=== PATIENT | male | born 1965 | race Caucasian/White ===

== ENCOUNTER 2020-06-10 09:17 | Day surgery (SDC) | payer OTHER ==
[2020-06-05 11:33] VITALS: BMI 32.8
[~2020-06-10 09:17] MED LIST: LACTATED RINGERS 1,000 ML IV SCH; LIDOCAINE 1% (10MG/ML) FOR IV START INTRADERMA PRN
[2020-06-10 09:45] VITALS: TEMP 97
[2020-06-10] MEDS ORDERED: PROPOFOL 10 MG/ML 20 ML VIAL IV ONE (10:13)
--- NOTE | 2020-06-10 10:15 | P.GSHP ---
History of Present Illness H&P Date: 06/10/20 Chief Complaint: Blood in stool 55-year-old male here today for colonoscopy. Had a colonoscopy 1-2 that showed diverticulitis. Patient recently had a cologuard test which was positive. Sees occasional bright red blood per rectum. No known hemorrhoids. No family history of colon cancer. Past Medical History Past Medical History: Hyperlipidemia, Osteoarthritis (OA) Additional Past Medical History / Comment(s): "Wearing a heart monitor currently, heart racing at times. Postive stool sample." History of Any Multi-Drug Resistant Organisms: None Reported Past Surgical History: No Surgical Hx Reported Additional Past Surgical History / Comment(s): Colonoscopy. Past Anesthesia/Blood Transfusion Reactions: Motion Sickness Past Psychological History: No Psychological Hx Reported Smoking Status: Current every day smoker Past Alcohol Use History: Occasional Additional Past Alcohol Use History / Comment(s): Has been smoking 40 yrs, 1 PPD. Past Drug Use History: None Reported - Past Family History Father Family Medical History: Cancer Additional Family Medical History / Comment(s): Leukemia. Medications and Allergies Home Medications Medication Instructions Recorded Confirmed Type Atorvastatin [Lipitor] 40 mg PO DAILY 06/05/20 06/10/20 History Cider Vinegar [Apple Cider Vinegar] 300 mg PO DAILY 06/05/20 06/10/20 History Allergies Allergy/AdvReac Type Severity Reaction Status Date / Time No Known Allergies Allergy Verified 06/10/20 09:46 Surgical - Exam Vital Signs Temp Pulse Resp BP Pulse Ox 97 F L 74 16 148/92 97 06/10/20 09:44 06/10/20 09:44 06/10/20 09:44 06/10/20 09:44 06/10/20 09:44 Physical exam: General: Well-developed, well-nourished HEENT: Normocephalic, sclerae nonicteric Abdomen: Nontender, nondistended Extremities: No edema Neuro: Alert and oriented Assessment and Plan (1) Blood in stool Narrative/Plan: Will proceed with colonoscopy Current Visit: Yes Status: Acute Code(s): K92.1 - MELENA SNOMED Code(s): 646516226
--- NOTE | 2020-06-10 10:30 | P.PCN ---
Date of Procedure: 06/10/20 Procedure(s) Performed: PREOPERATIVE DIAGNOSIS: Blood in stool POSTOPERATIVE DIAGNOSIS: Mild left-sided colitis, diverticulosis PROCEDURE: Colonoscopy with biopsy ANESTHESIA: MAC SURGEON: Garth Rico M.D. SPECIMENS: Colitis ENDOSCOPIC PROCEDURE: The patient was placed on the endoscopy table in the left decubitus position. The Olympus colonoscope was inserted into the anus and passed under direct visualization to the base of the cecum. The appendiceal orifice was visualized. From that point the scope was slowly withdrawn inspecting all surfaces carefully. There were no neoplastic inflammatory or polypoid lesions throughout the cecum, ascending, and transverse colon. In the descending and sigmoid colon there was mild scattered areas of inflammatory change with edema and erythema of the mucosa. No ulcerations were seen. These were not necessarily in the vicinity of diverticulosis pockets. There was diverticulosis seen however in the sigmoid colon. Biopsies of the areas of colitis took place. Overall the degree of inflammatory change was mild. The rectum appeared normal. Digital rectal examination was normal. The patient was taken to the recovery room in stable condition per anesthesia guidelines. RECOMMENDATIONS: Await biopsy results. Inflammatory changes likely the source of recent cologuard positive stools. If biopsy results negative for malignancy or atypia recommend observation for now. Follow colonoscopy advised 5 years. Would not repeat cologuard as this likely will remain positive.
[2020-06-10 10:55] VITALS: BP 124/86; PULSE 63; RESP 16
== END 2020-06-10 11:17 | disposition home or self-care (01) ==
LOC: ORWHC2ENDO 09:17
PROVIDERS: ATTEND Surgery
DX: K51.511 Left sided colitis with rectal bleeding (principal); K57.31 Diverticulosis of large intestine without perforation or abscess with bleeding; E78.5 Hyperlipidemia, unspecified; M19.90 Unspecified osteoarthritis, unspecified site; R00.0 Tachycardia, unspecified; F17.210 Nicotine dependence, cigarettes, uncomplicated; I49.9 Cardiac arrhythmia, unspecified; Z98.890 Other specified postprocedural states; Z87.898 Personal history of other specified conditions; Z79.899 Other long term (current) drug therapy; Z80.6 Family history of leukemia
CPT/HCPCS: 45380; 88305

== ENCOUNTER 2020-09-20 10:05 | Inpatient (IN) | payer OTHER ==
[2020-09-20] MEDS ORDERED: NITROGLYCERIN OINT 1 INCH/GM PACKET TOPICAL STA ×2 (10:25→10:27)
[2020-09-20] MEDS ORDERED: ASPIRIN 81 MG PO STA ×2 (10:26→10:27)
[2020-09-20] MEDS ORDERED: ATORVASTATIN 80 MG TAB PO STA (10:26)
[2020-09-20] MEDS ORDERED: HEPARIN SODIUM 1,000 UN/ML (10ML VL) IV ONE ×2 (10:26→10:27)
--- NOTE | 2020-09-20 10:30 | ED ---
General Adult HPI - General Chief complaint: Chest Pain Stated complaint: Chest pain Time Seen by Provider: 09/20/20 10:10 Source: patient, RN notes reviewed, old records reviewed Mode of arrival: ambulatory Limitations: no limitations - History of Present Illness Initial comments: This is a 55-year-old male who presents emergency Department complaining of chest pain intermittently over the last week. Patient states at times his been severe. Patient states he has high blood pressure and high cholesterol. Patient denies any previous cardiac history. Patient denies any diabetes. Patient denies any smoking history. Patient came in and was having some significant pain this morning but when he got here was only minimal he was having pain hour when EKG was done. Patient states currently he is chest pain- free. Patient denies any palpitations. Patient denies shortness of breath per patient denies any abdominal pain patient denies nausea vomiting diarrhea. - Related Data Home Medications Medication Instructions Recorded Confirmed Atorvastatin [Lipitor] 40 mg PO DAILY 06/05/20 06/10/20 Cider Vinegar [Apple Cider Vinegar] 300 mg PO DAILY 06/05/20 06/10/20 Allergies Allergy/AdvReac Type Severity Reaction Status Date / Time No Known Allergies Allergy Verified 09/20/20 10:14 Review of Systems ROS Statement: Those systems with pertinent positive or pertinent negative responses have been documented in the HPI. ROS Other: All systems not noted in ROS Statement are negative. Past Medical History Past Medical History: Hyperlipidemia, Osteoarthritis (OA) Additional Past Medical History / Comment(s): "Wearing a heart monitor currently, heart racing at times. Postive stool sample." History of Any Multi-Drug Resistant Organisms: None Reported Past Surgical History: No Surgical Hx Reported Additional Past Surgical History / Comment(s): Colonoscopy. Past Anesthesia/Blood Transfusion Reactions: Motion Sickness Past Psychological History: No Psychological Hx Reported Smoking Status: Current every day smoker Past Alcohol Use History: Occasional Past Drug Use History: None Reported - Past Family History Father Family Medical History: Cancer Additional Family Medical History / Comment(s): Leukemia. General Exam - General Exam Comments Initial Comments: GENERAL: Patient is well-developed and well-nourished. Patient is nontoxic and well- hydrated and is in mild distress. ENT: Neck is soft and supple. No significant lymphadenopathy is noted. Oropharynx is clear. Moist mucous membranes. Neck has full range of motion without eliciting any pain. EYES: The sclera were anicteric and conjunctiva were pink and moist. Extraocular movements were intact and pupils were equal round and reactive to light. Eyelids were unremarkable. PULMONARY: Unlabored respirations. Good breath sounds bilaterally. No audible rales rhonchi or wheezing was noted. CARDIOVASCULAR: There is a regular rate and rhythm without any murmurs gallops or rubs. ABDOMEN: Soft and nontender with normal bowel sounds. SKIN: Skin is clear with no lesions or rashes and otherwise unremarkable. NEUROLOGIC: Patient is alert and oriented x3. Cranial nerves II through XII are grossly intact. Motor and sensory are also intact. Normal speech, volume and content. Symmetrical smile. MUSCULOSKELETAL: Normal extremities with adequate strength and full range of motion. No lower extremity swelling or edema. No calf tenderness. LYMPHATICS: No significant lymphadenopathy is noted PSYCHIATRIC: Normal psychiatric evaluation. Limitations: no limitations Course Vital Signs 09/20/20 10:11 Temperature 98.2 F Pulse Rate 76 Respiratory 18 Rate Blood Pressure 155/101 O2 Sat by Pulse 99 Oximetry Medical Decision Making - Medical Decision Making EKG shows normal sinus rhythm at 67 bpm RI interval 222 QRS is 106 QT interval 366 QTC is [address] segment elevation in inferior leads II, III, and F aVF. I called a STEMI overhead immediately I spoke with Dr. Emanuel he came down to see the patient within minutes. She will be taking to the catheterization lab. I spoke with Dr. Barriga and he agreed to admit the patient admitted the patient and wroteorders Critical Care Time Critical Care Time: Yes Total Critical Care Time: 30 Disposition Clinical Impression: ST elevation myocardial infarction (STEMI) Disposition: ADMITTED IP TO THIS HOSP Referrals: Jose R Morrison MD [Primary Care Provider] - 1-2 days Time of Disposition: 10:30
[2020-09-20 10:37] LABS: Basophils % (A) 0 %; Eosinophils # (A) 0.3 k/uL (0-0.7); Eosinophils % (A) 3 %; HCT 52.5 % (39.0-53.0); HGB 17.7 gm/dL (13.0-17.5); Lymphocytes # (A) 1.8 k/uL (1.0-4.8); Lymphocytes % (A) 23 %; MCH 29.3 pg (25.0-35.0); MCHC 33.8 g/dL (31.0-37.0); MCV 86.9 fL (80.0-100.0); Mean Platelet Volume 7.4; Monocytes # (A) 0.4 k/uL (0-1.0); Monocytes % (A) 5 %; Neutrophils # (A) 5.3 k/uL (1.3-7.7); Neutrophils % (A) 68 %; Platelet Count 273 k/uL (150-450); RBC 6.05 m/uL (4.30-5.90); RDW 12.6 % (11.5-15.5); WBC 7.8 k/uL (3.8-10.6)
[2020-09-20] MEDS ORDERED: IV FLUID CONTINUATION 1,000 ML IV ONE (10:50)
--- NOTE | 2020-09-20 10:50 | XR ---
EXAMINATION TYPE: XR chest 1V portable DATE OF EXAM: 09/20/2020 COMPARISON: None HISTORY: Chest pain TECHNIQUE: Single frontal view of the chest is obtained. FINDINGS: There is no focal air space opacity, pleural effusion, or pneumothorax seen. The cardiac silhouette size is within normal limits. The osseous structures are intact. IMPRESSION: No acute process.
[2020-09-20 10:51] LABS: Partial Thromboplastin Time 23.3 sec (22.0-30.0); Prothrombin Time 10.5 sec (9.0-12.0)
[2020-09-20] MEDS ORDERED: VERAPAMIL 2.5 MG/ML 2 ML AMP ONE (10:58)
[2020-09-20] MEDS ORDERED: LIDOCAINE 1% INJ 10MG/ML (20 ML MDV) ONE (10:59)
[2020-09-20] MEDS ORDERED: fentaNYL (PF) 50 MCG/ML 2 ML AMP IVP ONE (11:00)
[2020-09-20] MEDS ORDERED: fentaNYL (PF) 50 MCG/ML 2 ML AMP ONE (11:00)
[2020-09-20] MEDS ORDERED: LIDOCAINE 1% INJ 10MG/ML (20 ML MDV) SQ ONE (11:04)
[2020-09-20] MEDS ORDERED: MIDAZOLAM 2 MG/2 ML VIAL IVP ONE (11:05)
[2020-09-20] MEDS ORDERED: VERAPAMIL SYRINGE (5 MG/10 ML) INTRAARTER ONE (11:06)
[2020-09-20] MEDS ORDERED: HEPARIN SODIUM 1,000 UN/ML (10ML VL) ONE (11:09)
[2020-09-20] MEDS ORDERED: TICAGRELOR 90 MG TAB ONE (11:11)
[2020-09-20] MEDS ORDERED: TICAGRELOR 90 MG TAB PO ONE (11:12)
[2020-09-20 11:16] LABS: ALT 96 U/L (4-49); AST 51 U/L (17-59); African American GFR (CKD) >90 (>60 ml/min/1.73 sqM); Albumin 4.8 g/dL (3.5-5.0); Alkaline Phosphatase 81 U/L (38-126); Anion Gap 8 mmol/L; Blood Urea Nitrogen 16 mg/dL (9-20); Calcium 10.2 mg/dL (8.4-10.2); Carbon Dioxide 28 mmol/L (22-30); Chloride 102 mmol/L (98-107); Glucose 144 mg/dL (74-99); Magnesium 1.9 mg/dL (1.6-2.3); Non-African American GFR(CKD) >90 (>60 ml/min/1.73 sqM); Potassium 4.7 mmol/L (3.5-5.1); Sodium 138 mmol/L (137-145); Total Bilirubin 0.3 mg/dL (0.2-1.3); Total Protein 7.1 g/dL (6.3-8.2)
[2020-09-20] MEDS ORDERED: IOPAMIDOL-370 100ML BTL INJ ONE ×2 (11:24→11:28)
[2020-09-20] MEDS ORDERED: MAG HYDROX/AL HYDROX/SIMETH 30 ML CUP PO PRN (11:42)
[2020-09-20] MEDS ORDERED: RX INFO: IV CONTRAST WAS GIVEN 1 EACH MISC MISCELLANE PRN (11:42)
[2020-09-20] MEDS ORDERED: ZOLPIDEM 5 MG TAB PO PRN (11:42)
[2020-09-20] MEDS ORDERED: NITROGLYCERIN SL TABS 0.4 MG TAB SUBLINGUAL PRN (11:42)
[2020-09-20] MEDS ORDERED: ATROPINE SULFATE 0.1 MG/ML 10ML SYRINGE IV PRN (11:42)
[2020-09-20 11:52] LABS: Glucose,Whole Blood 149 mg/dL (75-99)
[2020-09-20] MEDS: SODIUM CHLORIDE 0.9% 1,000 ML IV SCH ×2 (12:06→17:13)
--- NOTE | 2020-09-20 13:09 | CC ---
CARDIAC CATHETERIZATION REPORT HISTORY: Mr. Cota is a 55-year-old male, history of hypertension, hyperlipidemia, and chronic tobacco use, who presented with an acute ST-segment elevation myocardial infarction. In view of that, recommendation was made regarding cardiac catheterization, the procedure as well as the risks and the complications were discussed with the patient who is in full understanding and agreement. PROCEDURE: Patient was brought to the labor relations specialist. He received fentanyl and Benadryl and achieving moderate conscious state. He was prepped and draped in conventional fashion using Xylocaine anesthesia, Seldinger technique a 6-Omani sheath was introduced in the right radial artery. Selective right and left coronary angiography performed using 6-Omani FR4 guiding catheter and a 5-Omani 3.5 bend left Fidelina catheter. After obtaining images of the right coronary artery and performing angioplasty and stenting, images of the left coronary system were obtained. The right guide was used to cross the aortic valve and left ventricular end-diastolic pressure was calculated. Following that, catheter and sheath were removed. Hemostasis was obtained with deployment of TR band. There was no complication patient was returned to his room in stable condition. FINDINGS: LEFT MAIN: This is a large-sized vessel, bifurcating into left circumflex, left anterior descending artery. The left main coronary artery has no evidence of high-grade stenosis. LEFT ANTERIOR DESCENDING ARTERY: This is a large-sized vessel giving rise to a very proximal large diagonal branch. The second diagonal branch is small in caliber. The first diagonal branch has a 20% to 30%. plaque. The LAD has no evidence of high-grade stenosis. The LAD tapers down in distal third. LEFT CIRCUMFLEX: This is a nondominant vessel giving rise to 3 obtuse marginal branches. The first and 2nd are moderate in caliber. The left circumflex after the takeoff of the first diagonal branch has a 20% to 30% plaque. The rest of the vessel has no high-grade stenosis. RIGHT CORONARY ARTERY: This is a large dominant vessel bifurcating into PDA and posterolateral segment branches. The PDA reaches to the inferoapical wall. Right coronary artery is tortuous. In mid segment at the distal segment prior to the bifurcation there is 95%. He has the plaque. The rest of the vessel has no high-grade stenosis. LEFT VENTRICULOGRAM: Left ventriculogram was not performed. HEMODYNAMICS: There was no gradient across the aortic valve. The left ventricular end-diastolic pressure was 6 to 8 mmHg. CONCLUSION: 1. Subtotally occluded distal right coronary artery with haziness consistent with an intracoronary thrombus. 2. Mild disease in the LAD and the left circumflex. RECOMMENDATIONS: In view of finding anatomy, I recommend proceeding with angioplasty and stenting. The procedure as well as the risks and the complications were discussed with the patient who is in full understanding and agreement. MMODL / IJN: [id number] /
--- NOTE | 2020-09-20 13:20 | CONS ---
CONSULTATION ATTENDING PHYSICIAN: Dr. Morrison. HISTORY OF PRESENT ILLNESS: Mr. Cota is a 55-year-old male with known history of hypertension who presented to the emergency room with symptoms of chest discomfort. He has been having the discomfort on and off for the last week and today it is much ro. Came into the emergency room and was noted to have evidence of ST-segment elevation in the inferior leads. At the time of my evaluation, he was pain-free. According to the patient, he has been evaluated by Dr. Durham and underwent a myocardial perfusion imaging. The results are not available to me at this time. His discomfort has been exertional in the past. He denies any prior cardiac history prior to this one. He denies any dizziness or palpitation. No syncope. He has mild dyspnea. His coronary risk factors are remarkable for hypertension, hyperlipidemia, as well as history of smoking and a family history of premature coronary artery disease. MEDICATION: His medications at home include rosuvastatin 10 mg daily and losartan 50 mg daily. REVIEW OF SYSTEMS: RESPIRATORY SYSTEM: He has no documented history of asthma or emphysema. GI SYSTEM: No recent GI bleeding. No peptic ulcer disease. SYSTEM: No dysuria or hematuria. NERVOUS SYSTEM: No history of stroke or seizure. PHYSICAL EXAMINATION: A 55-year-old male, alert, oriented, in no apparent distress. Blood pressure 155/100 with a heart rate in 70s. HEAD: Normocephalic. Eyes sclerae anicteric. NECK: Good carotid upstroke, no bruit, no jugular venous distention. LUNGS: Clear to auscultation. HEART: Regular rate and rhythm. S1, S2. No S3. No S4. No murmur or rub. ABDOMEN: Soft and nontender. Positive bowel sounds. No organomegaly. EXTREMITIES: No edema. Intact pulses. LAB DATA: Hemoglobin of 17.7, white blood cells 7.8. EKG sinus mechanism with ST-segment elevation in leads 2, 3, AVF with ST depression in 1 and aVL. IMPRESSION: 1. Acute inferior wall myocardial infarction. 2. Hypertension. 3. Hyperlipidemia. 4. Chronic tobacco use. RECOMMENDATION: I recommend proceeding with emergent cardiac catheterization. The rationale behind the procedure as well as risks and the complications were discussed with the patient who is in full understanding and agreement. Depending on the results of testing, further recommendation will be made. Thank you for this consult. We will follow with you. MMODL / IJN: [id number] /
--- NOTE | 2020-09-20 13:41 | PTCA ---
PERCUTANEOUSTRANS CORORONARY ANGIOGRAPHY HISTORY: Mr. Cota is a 55-year-old male who presented with acute ST-segment elevation inferior myocardial infarction. His cardiac catheterization revealed critical stenosis involving the distal right coronary artery. In view of that, recommendation regarding angioplasty and stenting, the procedure as well as the risks and the complications were discussed with the patient who is in full understanding and agreement. PROCEDURE DESCRIPTION: Using the 6-Yoruba FR4 guiding catheter after crossing the right coronary artery, 0.014 balanced medium weight J-wire was advanced across the lesion, positioned distally. Then a 4.0 x 15 mm Xience Jeannine stent was advanced, deployed and post dilated at 16 atmospheres. After the last inflation, after appropriate wait, the balloon and the guidewire were withdrawn back in the guiding catheter. Images were obtained AND repeated those images reveal stable successful stenting. At that point, the guiding catheter the balloon, and the were removed and images of the left coronary system were performed. Following that, catheter and sheath were removed. Hemostasis was obtained with deployment of a TR band. There was no immediate complication. The patient was returned to his room in stable condition. Of note, the patient had chest discomfort and EKG changes with the inflation that resolved at the end of the procedure. He received an additional 5000 units of intravenous heparin. His ACT was followed and he received an oral loading dose of Brilinta. RESULTS: Successful stenting of the distal right coronary artery with reduction of stenosis from 95% to 0%. RECOMMENDATION: Patient be continued on aspirin, Brilinta, beta blockers and statin. The importance of dual and antiplatelet treatment and smoking cessation were discussed with the patient who is in full understanding and agreement. Duration of sedation is 28 minutes. MMODL / IJN: [id number] / MTDD
[2020-09-20 13:55] VITALS: BMI 33.1
[2020-09-20] MEDS ORDERED: ACETAMINOPHEN TAB 325 MG TAB PO PRN (17:02)
[2020-09-20 20:37] LABS: Chol/HDL Ratio 4.32; LDL Cholesterol,Calculated 82.4 mg/dL (0.0-131.0); VLDL Calculation 30.6 mg/dL (5.00-40.00)
[2020-09-20] MEDS: NICOTINE 14MG/24HR PATCH TRANSDERM SCH (20:47)
[2020-09-20] MEDS: ATORVASTATIN 80 MG TAB PO SCH (21:34)
[2020-09-20] MEDS: METOPROLOL TARTRATE 25 MG TAB PO SCH (21:36)
[2020-09-20] MEDS: TICAGRELOR 90 MG TAB PO SCH (21:36)
[2020-09-21 05:02] LABS: African American GFR (CKD) >90 (>60 ml/min/1.73 sqM); Anion Gap 5 mmol/L; Blood Urea Nitrogen 13 mg/dL (9-20); Calcium 9.1 mg/dL (8.4-10.2); Carbon Dioxide 29 mmol/L (22-30); Chloride 104 mmol/L (98-107); Glucose 99 mg/dL (74-99); Non-African American GFR(CKD) >90 (>60 ml/min/1.73 sqM); Potassium 4.7 mmol/L (3.5-5.1); Sodium 138 mmol/L (137-145)
[2020-09-21 05:18] LABS: Basophils % (A) 0 %; Eosinophils # (A) 0.3 k/uL (0-0.7); Eosinophils % (A) 3 %; HCT 53.1 % (39.0-53.0); HGB 17.1 gm/dL (13.0-17.5); Lymphocytes # (A) 1.6 k/uL (1.0-4.8); Lymphocytes % (A) 18 %; MCH 28.6 pg (25.0-35.0); MCHC 32.1 g/dL (31.0-37.0); MCV 89.2 fL (80.0-100.0); Mean Platelet Volume 7.9; Monocytes # (A) 0.5 k/uL (0-1.0); Monocytes % (A) 6 %; Neutrophils # (A) 6.1 k/uL (1.3-7.7); Neutrophils % (A) 70 %; Platelet Count 188 k/uL (150-450); RBC 5.95 m/uL (4.30-5.90); RDW 13.3 % (11.5-15.5); WBC 8.7 k/uL (3.8-10.6)
[2020-09-21] MEDS: ASPIRIN 81 MG PO SCH (09:03)
[2020-09-21] MEDS: TICAGRELOR 90 MG TAB PO SCH ×2 (09:03→20:41)
[2020-09-21] MEDS: ATORVASTATIN 80 MG TAB PO SCH (09:09)
[2020-09-21] MEDS: METOPROLOL TARTRATE 25 MG TAB PO SCH ×2 (09:10→20:42)
[2020-09-21] MEDS: NICOTINE 14MG/24HR PATCH TRANSDERM SCH (09:10)
--- NOTE | 2020-09-21 09:28 | PN ---
PROGRESS NOTE Mr. Cota is a 55-year-old male known history of hypertension, hyperlipidemia, chronic tobacco use, who presented with an acute inferior myocardial infarction, underwent stenting of his right coronary artery. He is doing well this morning. He denies any chest pain, his breathing stable. He denies any dizziness or palpitations. He denies any nausea. He is in sinus mechanism. He continues to be on aspirin once a day, Brilinta 90 mg twice a day, Lipitor 80 mg daily. He did not get his beta franko last night because of sinus bradycardia. PHYSICAL EXAMINATION: Blood pressure running in the 130s to 150 with a heart rate in 50s to 60s. LUNGS: Clear. HEART regular rate and rhythm S1, S2. No S3. No rub. No gallop. ABDOMEN: Soft, nontender. EXTREMITIES: No edema. Right radial pulse intact. LAB DATA: His troponin peak is 0.047. He has a hemoglobin 17.1, BUN and creatinine 13 and 0.94. IMPRESSION: 1. Status post inferior myocardial infarction with stenting of the right coronary artery, stable. No significant elevation of the troponin. 2. Hypertension. 3. Hyperlipidemia. 4. Chronic tobacco use. RECOMMENDATION: I will restart him on the losartan 50 mg daily. We will obtain echocardiogram with Doppler tomorrow. He will be transferred down to the floor and his activity level was increased. If he remains stable, I would expect he should be able to be discharged home in the next 24 hours. MMODL / IJN: [id number] /
[2020-09-22 05:31] LABS: Basophils % (A) 0 %; Eosinophils # (A) 0.4 k/uL (0-0.7); Eosinophils % (A) 4 %; HCT 49.4 % (39.0-53.0); HGB 16.7 gm/dL (13.0-17.5); Lymphocytes # (A) 1.9 k/uL (1.0-4.8); Lymphocytes % (A) 18 %; MCH 29.7 pg (25.0-35.0); MCHC 33.8 g/dL (31.0-37.0); Mean Platelet Volume 7.6; Monocytes # (A) 0.7 k/uL (0-1.0); Monocytes % (A) 7 %; Neutrophils # (A) 7.2 k/uL (1.3-7.7); Neutrophils % (A) 69 %; Platelet Count 238 k/uL (150-450); RBC 5.61 m/uL (4.30-5.90); RDW 12.8 % (11.5-15.5); WBC 10.3 k/uL (3.8-10.6)
[2020-09-22 05:50] LABS: African American GFR (CKD) >90 (>60 ml/min/1.73 sqM); Anion Gap 6 mmol/L; Blood Urea Nitrogen 14 mg/dL (9-20); Carbon Dioxide 27 mmol/L (22-30); Chloride 104 mmol/L (98-107); Glucose 96 mg/dL (74-99); Non-African American GFR(CKD) >90 (>60 ml/min/1.73 sqM); Potassium 4.8 mmol/L (3.5-5.1); Sodium 137 mmol/L (137-145)
[2020-09-22] MEDS ORDERED: METOPROLOL TARTRATE 12.5 MG TAB PO SCH (09:00)
[2020-09-22] MEDS ORDERED: LOSARTAN 50 MG TAB PO SCH (09:00)
[2020-09-22 09:35] VITALS: PULSE 67; RESP 16; TEMP 98.1
[2020-09-22] MEDS: ASPIRIN 81 MG PO SCH (09:39)
[2020-09-22] MEDS: TICAGRELOR 90 MG TAB PO SCH (09:39)
[2020-09-22] MEDS: NICOTINE 14MG/24HR PATCH TRANSDERM SCH (09:40)
[2020-09-22 09:42] VITALS: BP 149/85
--- NOTE | 2020-09-22 11:34 | ECHOF ---
Referral Reason:wy MEASUREMENTS -------- HEIGHT: 177.8 cm WEIGHT: 108.9 kg BP: 145/85 RVIDd: 3.0 cm (< 3.3) IVSd: 1.4 cm (0.6 - 1.1) LVIDd: 3.3 cm (3.9 - 5.3) LVPWd: 1.5 cm (0.6 - 1.1) IVSs: 2.1 cm LVIDs: 1.6 cm LVPWs: 1.9 cm Ao Diam: 3.6 cm (2.0 - 3.7) AV Cusp: 2.2 cm (1.5 - 2.6) LA Diam: 3.0 cm (2.7 - 3.8) MV EXCURSION: 15.271 mm (> 18.000) MV EF SLOPE: 101 mm/s (70 - 150) EPSS: 0.6 cm MV E Pa: 0.70 m/s MV DecT: 185 ms MV A Pa: 0.78 m/s MV E/A Ratio: 0.90 RAP: 5.00 mmHg RVSP: 32.20 mmHg FINDINGS -------- This was a technically adequate study. The left ventricular size is normal. There is moderate concentric left ventricular hypertrophy. O verall left ventricular systolic function is normal with, an EF between 55 - 60 %. The right ventricle is normal in size. The left atrial size is normal. The right atrial size is normal. The aortic valve is trileaflet and appears structurally normal. The mitral valve is normal. There is trace mitral regurgitation. The tricuspid valve appears structurally normal. Trace tricuspid regurgitation present. Right beau tricular systolic pressure is normal at < 35 mmHg. There is no pulmonic regurgitation present. The aortic root size is normal. Normal inferior vena cava with normal inspiratory collapse consistent with estimated right atrial pre ssure of 5 mmHg. There is no pericardial effusion. CONCLUSIONS -------- 1. The left ventricular size is normal. 2. There is moderate concentric left ventricular hypertrophy. 3. Overall left ventricular systolic function is normal with, an EF between 55 - 60 %. 4. There is trace mitral regurgitation. 5. Trace tricuspid regurgitation present. 6. There is no pericardial effusion. P[employer]ING PLANT OPERATOR: Shandra Lincoln RDCS
--- NOTE | 2020-09-22 14:07 | P.CRDCN ---
History of Present Illness History of present illness: This is a 55-year-old male with a past medical history of hypertension, hyperlipidemia, chronic nicotine dependence. He follows in the office with Dr. Durham. Patient presents emergency department with an acute inferior myocardial infarction. Patient underwent stenting of his RCA with Dr. Emanuel yesterday 09/21/20. Patient seen and examined at bedside, no acute distress. Stating the bedside chair. Denies shortness of breath, chest pain, palpitations, dizziness, lightheadedness. He is currently maintaining sinus mechanism. Patient currently being maintained on aspirin 81 mg daily, Brilinta 90 mg twice a day, metoprolol tartrate 12.5 mg twice a day, losartan 50 mg daily, statin. Blood pressure 149/85, heart rate 67, afebrile, maintaining oxygen saturation is 95% on room air GENERAL: Well-appearing, well-nourished and in no acute distress. NECK: Supple without JVD or thyromegaly. LUNGS: Breath sounds clear to auscultation bilaterally. Respiration equal and unlabored. No wheezes, rales or rhonchi. HEART: Regular rate and rhythm without murmurs, rubs or gallops. S1 and S2 heard. EXTREMITIES: Normal range of motion, no edema. No clubbing or cyanosis. Peripheral pulses intact. Right radial pulse 2+ ASSESSMENT Acute inferior myocardial infarction status post PCI to RCA Hypertension Dyslipidemia Chronic nicotine dependence PLAN Echocardiogram revealed moderate LVH, EF 55-60%, trace MR, trace tricuspid regurgitation Recommend continue dual antiplatelet therapy with aspirin and Brilinta, beta franko, losartan and statin Patient to be discharged today. Follow up with Dr. Durham in one week Smoking cessation discussed with patient and highly recommended Nurse Practitioner note has been reviewed, I agree with a documented findings and plan of care. Patient was seen and examined. Past Medical History Past Medical History: Hyperlipidemia, Hypertension, Osteoarthritis (OA) Additional Past Medical History / Comment(s): "Wearing a heart monitor currently, heart racing at times. Postive stool sample." History of Any Multi-Drug Resistant Organisms: None Reported Past Surgical History: No Surgical Hx Reported Additional Past Surgical History / Comment(s): Colonoscopy. Past Anesthesia/Blood Transfusion Reactions: No Reported Reaction Smoking Status: Current every day smoker - Past Family History Father Family Medical History: Cancer, Coronary Artery Disease (CAD), CVA/TIA, Hypertension, Myocardial Infarction ([place]) Additional Family Medical History / Comment(s): Leukemia, CABG. Medications and Allergies Home Medications Medication Instructions Recorded Confirmed Type Losartan Potassium 50 mg PO DAILY 09/20/20 09/20/20 History Aspirin 81 mg PO DAILY #100 chew 09/22/20 Rx Metoprolol Tartrate [Lopressor] 12.5 mg PO BID #60 tab 09/22/20 Rx Nicotine 14Mg/24Hr Patch [Habitrol] 1 patch TRANSDERM DAILY #30 patch 09/22/20 Rx Nitroglycerin Sl Tabs [Nitrostat] 0.4 mg SUBLINGUAL Q5M PRN #20 tab 09/22/20 Rx Rosuvastatin Calcium [Crestor] 40 mg PO DAILY #100 09/22/20 09/20/20 Rx Ticagrelor [Brilinta] 90 mg PO BID #100 tab 09/22/20 Rx Allergies Allergy/AdvReac Type Severity Reaction Status Date / Time No Known Allergies Allergy Verified 09/20/20 10:14 Physical Exam Vitals: Vital Signs Temp Pulse Resp BP Pulse Ox 09/22/20 08:00 98.1 F 67 16 149/85 95 09/22/20 06:00 89 16 09/22/20 04:00 56 L 14 145/85 97 09/22/20 00:00 97.6 F 72 21 143/82 96 09/21/20 20:00 71 12 116/82 96 09/21/20 16:00 97.7 F 68 16 116/82 94 L Intake and Output 09/21/20 09/22/20 09/22/20 22:59 06:59 14:59 Intake Total 390 0 Balance 390 0 Intake: Oral 390 0 Other: Voiding Method Toilet Toilet Toilet # Voids 1 1 1 # Bowel Movements 1 Weight 110 kg Results 09/22/20 04:43 09/22/20 04:43 CBC 09/22/20 Range/Units 04:43 WBC 10.3 (3.8-10.6) k/uL RBC 5.61 (4.30-5.90) m/uL Hgb 16.7 (13.0-17.5) gm/dL Hct 49.4 (39.0-53.0) % Plt Count 238 (150-450) k/uL Comprehensive Metabolic Panel 09/22/20 Range/Units 04:43 Sodium 137 (137-145) mmol/L Potassium 4.8 (3.5-5.1) mmol/L Chloride 104 (98-107) mmol/L Carbon Dioxide 27 (22-30) mmol/L BUN 14 (9-20) mg/dL Creatinine 0.80 (0.66-1.25) mg/dL Glucose 96 (74-99) mg/dL Calcium 9.0 (8.4-10.2) mg/dL Intake and Output 09/21/20 09/22/20 09/22/20 22:59 06:59 14:59 Intake Total 390 0 Balance 390 0 Intake: Oral 390 0 Other: Voiding Method Toilet Toilet Toilet # Voids 1 1 1 # Bowel Movements 1 Weight 110 kg 09/22/20 04:43 09/22/20 04:43
--- NOTE | 2020-09-22 18:20 | HP ---
HISTORY AND PHYSICAL DATE OF SERVICE: 09/20/2020. CHIEF COMPLAINT: Chest pain. HISTORY OF PRESENT ILLNESS: This gentleman has been in the office recently for typical symptoms of angina. He was being set up for stress study when he started to have more and more discomfort with minimal exertion. He came to emergency room where he was found to have inferior STEMI. He was taken to the cardiovascular lab director for stenting of the right coronary. REVIEW OF SYSTEMS: Otherwise unremarkable other than the chest pain. Past medical history, family history and personal and social histories reveal that he is ALLERGIC to BEES. He is on vitamin D only and uses an EpiPen. He has had a history of diverticulitis. He does smoke and drinks alcohol occasionally. PHYSICAL EXAMINATION: Blood pressure 154/90, pulse of 82, respirations 20 and he is afebrile. In GENERAL, he appeared to be overweight in no acute distress. Skin was dry. HEAD, ears, eyes, nose, mouth and throat were normal. NECK veins not distended. Thyroid was not enlarged. Carotids normal. CHEST demonstrated decreased breath sounds with only occasional rales. CARDIAC exam demonstrates sinus rhythm and no murmurs or extra sounds. ABDOMEN was slightly protuberant, soft and nontender. EXTREMITIES are normal. NEUROLOGICAL: He is intact. IMPRESSION: He is admitted to the hospital with diagnoses: 1. Acute inferior ST-elevation myocardial infarction. 2. Chronic obstructive pulmonary disease. 3. Atherosclerotic cardiovascular disease. PLAN: 1. Bedrest. 2. IV fluids. 3. Cardiology consult. 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 DONA / MICHELLE: [id number] /
--- NOTE | 2020-09-22 18:24 | PN ---
PROGRESS NOTE DATE OF SERVICE: 09/21/2020. CHIEF COMPLAINT: Acute myocardial infarction. HISTORY OF PRESENT ILLNESS: This gentleman is doing well. He has had no arrhythmias and he has had no chest pain. PHYSICAL EXAMINATION: Chest is clear. Cardiac exam is normal. Abdomen is protuberant and soft. IMPRESSION: Acute myocardial infarction, status post stenting of the right coronary artery. PLAN: He is increasing his activity and will probably go home tomorrow. He is scheduled to have carotid duplex Tuesday as well as ultrasound of the abdominal aorta. MMODL / IJN: [id number] /
--- NOTE | 2020-09-22 22:45 | DS ---
DISCHARGE SUMMARY CHIEF COMPLAINT: Chest pain. HISTORY OF PRESENT ILLNESS AND PHYSICAL EXAMINATION: Details of this man's history and physical can be found in the initial workup. LABORATORY STUDIES: While he was in the hospital, he had laboratory studies, details of which can be found in the laboratory section of his chart. COURSE IN THE HOSPITAL: After admission, he was placed on bedrest, started intravenous fluids and taken to the collaborative physician. He underwent a coronary angiography where the right coronary was occluded and this was dilated and stent placed. Postoperatively, he did well and was stable. It was felt he could go home on 09/22/2020. He will go home on light activity about the house. He is to undergo carotid duplex study and abdominal ultrasound in the next few days. FINAL DIAGNOSES: 1. Acute ST-elevation inferior myocardial infarction. 2. Atherosclerotic cardiovascular disease. 3. Chronic obstructive pulmonary disease. OPERATIONS: Cardiac cath and stenting of the right coronary artery. CONSULTATIONS: Cardiology. He is improved. MMANTONYL / PHILIPPN: [id number] /
== END 2020-09-22 10:43 | disposition home or self-care (01) | DRG 247 ==
LOC: EC 10:05 → 2SICU 10:31 → OBSVTOIN 10:31
PROVIDERS: ADMIT Family Medicine; ATTEND Family Medicine
PROC: 4A023N7 Measurement of Cardiac Sampling and Pressure, Left Heart, Percutaneous Approach (ICD-10-PCS; principal; 2020-09-20 10:47)
PROC: B2111ZZ Fluoroscopy of Multiple Coronary Arteries using Low Osmolar Contrast (ICD-10-PCS; principal; 2020-09-20 10:47)
PROC: 027034Z Dilation of Coronary Artery, One Artery with Drug-eluting Intraluminal Device, Percutaneous Approach (ICD-10-PCS; principal; 2020-09-20 10:47)
DX: I21.19 ST elevation (STEMI) myocardial infarction involving other coronary artery of inferior wall (principal); E78.00 Pure hypercholesterolemia, unspecified; E78.5 Hyperlipidemia, unspecified; F17.210 Nicotine dependence, cigarettes, uncomplicated; I10 Essential (primary) hypertension; M19.90 Unspecified osteoarthritis, unspecified site; I25.10 Atherosclerotic heart disease of native coronary artery without angina pectoris; J44.9 Chronic obstructive pulmonary disease, unspecified; Z20.822 Contact with and (suspected) exposure to COVID-19; Z79.02 Long term (current) use of antithrombotics/antiplatelets; Z79.82 Long term (current) use of aspirin; Z79.899 Other long term (current) drug therapy; Z80.6 Family history of leukemia; Z82.49 Family history of ischemic heart disease and other diseases of the circulatory system; Z91.030 Bee allergy status
CPT/HCPCS: 36415; 71045; 80048; 80053; 80061; 83735; 84484; 85025; 85610; 85730; 87635; 93005; 93306; 93458; 96374; 99285